=== PATIENT | male | born 1965 | race Caucasian/White ===

== ENCOUNTER 2017-03-07 07:54 | Day surgery (SDC) | payer BC ==
[~2017-03-07] VITALS: Ht 177.8 cm; Wt 90.8 kg
[2017-03-07 08:49] VITALS: Ht 177.8 cm; Wt 90.8 kg
[2017-03-07] MEDS ORDERED: INHALER (08:53)
[2017-03-07] MEDS ORDERED: FENTAnyl 50 MCG/ML VIAL ONE (09:02)
[2017-03-07] MEDS ORDERED: PROPOFOL 40 ML ONE (09:02)
[2017-03-07 09:11] VITALS: BP 134/63; PULSE 58; RESP 18
--- NOTE | 2017-03-07 10:07 | OPPN ---
Date/Time of Note Date/Time of Note DATE: 03/07/17 TIME: 10:00 Proc Note GI Procedure Date 03/07/17 Pre-procedure Diagnosis heart burn chronic screening colonoscopy Post-procedure Diagnosis gerd gr 2 gastric polyp gastritis eso varices diverticulosis hemorrhoids Procedure Performed: Endoscopy, Colonoscopy Surgeon see signature line Legal Process Specialist none Anesthesia Type: moderate sedation Anesthesiologist: MAYO AMIN MD Tourniquet Time none EBL none Transfusion required none Biopsy 1: gastric and eso bx Grafts/Implants none Tubes/Drains none Complication(s) none Pt Condition post procedure: stable Disposition: home Indications: screening/surveillance, reflux Sx despite therapy Operative\Procedure Findings gerd eso varices gastric polyp gastritis diverticulosis hemorrhoids Procedure Description egd colonoscopy with M A C findings as above SEE dictation SHIRAZ JONES MD Mar 07, 2017 10:07
[2017-03-07 10:26] VITALS: BP 110/68; RESP 14
--- NOTE | 2017-03-07 12:35 | GILP ---
DATE OF PROCEDURE: PROCEDURE: Esophagogastroduodenoscopy. PREOPERATIVE DIAGNOSIS: Patient presenting with history of chronic heartburn, unresponsive to routi ne therapy, rule out gastroesophageal reflux disease, rule out Vance's esophagus. POSTOPERATIVE DIAGNOSES: Multiple distal esophageal erosions noted. Also, the folds appeared to be prominent. Varices cannot be excluded. Diffuse mild gastritis, mostly in the fundus of the stomach and also a polyp in the mid body of the stomach. Biopsies were done. DESCRIPTION OF PROCEDURE: After informed written consent was obtained, the patient was put in left lateral position. Intravenous anesthesia was given by anesthesiologist, Dr. Fulton. When the patie nt became somnolent, the Olympus video upper endoscope was introduced into the oropharynx, then into the esophagus. Esophagus appeared to show evidence of multiple erosions in the distal esophagus, a nd there seemed to be some prominent folds in the lower esophagus, and only 1 biopsy was done from t he esophageal erosion, because of this may be varices. However, after the biopsy, very minimal amou nt of oozing of the blood was noted, which was stopped on its own. Scope at this time was advanced into the stomach. A few nodular, irregular mucosal surface was noted in the fundus of the stomach i ndicating gastritis. Biopsy was done from the antrum, lesser curvature and the fundus to rule out H . pylori infection. But 4 mm polyp was noted in the mid body of the stomach with a little protrusio n on the top of the polyp as well. This was removed with a cold biopsy forceps. Duodenum appeared normal up to the end of the third portion. Scope at this time was withdrawn. On the way out, no ad ditional abnormalities detected, and the procedure was terminated. PLAN: Recommend omeprazole 40 mg a day for 8 weeks and wait for the pathology report. Dictated By: SHIRAZ ZAMARRIPA/LEONIDAS Conf#: [id number] DID#: [id number] CC: Dr. Shaw;*EndCC*
--- NOTE | 2017-03-07 12:55 | GILP ---
DATE OF PROCEDURE: PROCEDURE: Colonoscopy. PREOPERATIVE DIAGNOSIS: Patient presenting with history of lower GI problems, rule out colon polyps , because of the age is a screening colonoscopy. POSTOPERATIVE DIAGNOSES: 1. Diverticulosis of a milder degree scattered along the colon. 2. Minimal external hemorrhoids. DESCRIPTION OF PROCEDURE: After the informed written consent was obtained, the patient was asked to lie on the left lateral side. Patient was given intravenous anesthesia by anesthesiologist, Dr. Patricia gonzalez. When the patient became somnolent, the Olympus video colonoscope was introduced into the rect um, and scope was advanced all the way to the cecum. Diverticula was found to be scattered all lopez g the colon with no mucosal abnormality, no polyps, no other additional abnormalities detected. On the way out, the above findings were confirmed. Retroflexion was performed. No internal hemorrhoid s were noted, but when the scope was withdrawn, minimal external hemorrhoids were seen. Scope at th is time was withdrawn, and the procedure was terminated. PLAN: Recommend repeat colonoscopy in 10 years. Dictated By: SHIRAZ ZAMARRIPA/LEONIDAS Conf#: [id number] DID#: [id number] CC: Dr. Shaw;*EndCC*
== END 2017-03-07 10:44 | disposition home or self-care (01) ==
LOC: GIL 07:54
PROVIDERS: ATTEND Internal Medicine Gastroenterology
DX: Z12.11 Encounter for screening for malignant neoplasm of colon (principal); K31.7 Polyp of stomach and duodenum; K29.70 Gastritis, unspecified, without bleeding; K57.30 Diverticulosis of large intestine without perforation or abscess without bleeding; K64.4 Residual hemorrhoidal skin tags; K22.10 Ulcer of esophagus without bleeding
CPT/HCPCS: 43239; 45378; 88305; 88313; J3010; Z7610